=== PATIENT | female | born 1970 | race Caucasian/White ===

== ENCOUNTER 2018-12-30 07:02 | Day surgery (SDC) | payer BC ==
[~2018-12-30] VITALS: Ht 154.9 cm; Wt 72.3 kg
[2018-12-30 07:53] VITALS: BP 163/85; PULSE 60; RESP 16
[2018-12-30 07:57] VITALS: Ht 154.9 cm; Wt 72.3 kg
[2018-12-30] MEDS ORDERED: NO MEDS. (07:58)
[2018-12-30] MEDS ORDERED: FENTAnyl 50 MCG/ML VIAL ONE (09:29)
[2018-12-30] MEDS ORDERED: MIDAZOLAM 1 MG/ML 2 ML INJ ONE ×2 (09:29)
[2018-12-30 09:41] VITALS: BP 136/82; PULSE 54; RESP 17
--- NOTE | 2018-12-30 11:17 | CONS ---
DATE OF ADMISSION: 12/30/2018 DATE OF CONSULTATION: PATIENT NAME: RAMA AYALA TYPE OF CONSULTATION: Preoperative gastroenterology. Dear Dr. Anthony: I thank you very much for this kind referral. HISTORY OF PRESENT ILLNESS: Ms. Rama Ayala is a 48-year-old female patient who has been referre d to me for further evaluation of change in the bowel habit associated with constipation and left low er quadrant abdominal pain. No past history of colon neoplasm. The patient needs screening colonosc opy. Appetite is good and no weight loss. The patient also complains of upper abdominal pain associ ated with bloating. She has chronic heartburn, not responding to therapy. Not on nonsteroidal anti- inflammatory agents. PAST MEDICAL HISTORY: Status post cholecystectomy. Has history of fatty liver. Not a hypertensive or diabetic. No heart disease, lung problem or kidney disease. SOCIAL HISTORY: Nonsmoker. No alcohol abuse. FAMILY HISTORY: No family history of gastrointestinal tract neoplasm. ALLERGIES: NO DRUG ALLERGIES. MEDICATIONS: None. PHYSICAL EXAMINATION: VITAL SIGNS: She is 5 feet, 1 inch tall and weighs 155 pounds. HEART: Normal heart sounds. LUNGS: Clear. ABDOMEN: Soft. No masses. Normal bowel sounds. NEUROLOGIC: Normal. IMPRESSION: 1. Change in the bowel habit with constipation. 2. Left lower quadrant abdominal pain. 3. The patient needs screening colonoscopy. 4. Upper abdominal pain associated with bloating. 5. Chronic heartburn, not responding to therapy. 6. Status post cholecystectomy. 7. History of fatty liver. PLAN: 1. The patient was advised to lose weight, have low-fat diet and good control of serum lipids for fa tty liver. 2. Screening colonoscopy and upper endoscopy for further evaluation. The procedures and possible complications are well explained to the patient. She understands and con sents to the procedures. I thank you once again. With warmest personal regards, Dictated By: GILMAR PARKER/NESSA Conf#: [id number] DID#: [id number]
== END 2018-12-30 13:40 | disposition home or self-care (01) ==
LOC: GIL 07:02
PROVIDERS: ATTEND Internal Medicine Gastroenterology
DX: Z12.11 Encounter for screening for malignant neoplasm of colon (principal); K29.30 Chronic superficial gastritis without bleeding; K57.30 Diverticulosis of large intestine without perforation or abscess without bleeding; K64.8 Other hemorrhoids; K21.0 Gastro-esophageal reflux disease with esophagitis
CPT/HCPCS: 43239; 45378; 84703; 88305; 88312; J2250; J3010; Z7610